=== PATIENT | female | born 1970 | race Caucasian/White ===

== ENCOUNTER → 2018-06-12 07:48 | Outpatient (CLI) | payer OTHER, SELFPAY | PROVIDERS: Family Provider Family Medicine; PCP Family Medicine; Visit Provider Obstetrics & Gynecology | DX: N93.9 Abnormal uterine and vaginal bleeding, unspecified (principal) | CPT/HCPCS: 76830; 76856 ==

== ENCOUNTER → 2018-06-15 08:07 | Outpatient (CLI) | payer OTHER, SELFPAY ==
--- NOTE | 2018-06-15 12:30 | EMB_PTH ---
PATIENT: J CARLOS PADGETT LOC: [facility] U#:[id number] AGE/SX: 55/F ROOM: RE06/15/[address]: Dr. Janette Hendrix MD : 1970 BED: DIS: SPEC #: [id number] RECD: 06/15/18 14:35 STATUS: CIRO ZION #: [id number] PARTHA: 06/15/18 12:[address]: Janette Hendrix DEPT: SURGICAL PATHOLOGY RECD BY: Tonio Villeda ENTERED: 06/16/18 09:26 SP TYPE: ENDOLisandro BX/C DAISY DR: Rosa Schneider PA-C Tissues: Endometrium, NOS Procedures: Surgery Specimen Level IV HEADER OPERATION: Endometrial biopsy PRE-OP DIAGNOSIS: Abnormal uterine bleeding TISSUE SUBMITTED: Endometrial lining MICROSCOPIC DIAGNOSIS Endometrial biopsy: Scant fragments of endometrial tissue with mildly disordered proliferative endometrium. Desquamated fragments of benign ectocervical epithelium. SJ:samantha 06/16/18 MICROSCOPIC DESCRIPTION Slides are reviewed. GROSS DESCRIPTION Received is one container labeled with the patient's name and not further designated. The specimen consists of multiple fragments of hemorrhagic mucoid tissue that in aggregate measure 2 x 2 x 0.2 cm. The specimen is totally submitted in one cassette. / SJ:rg 06/15/18 TC:5 CPT: 87581
== END ==
PROVIDERS: Family Provider Family Medicine; PCP Family Medicine; Visit Provider Obstetrics & Gynecology
DX: N93.9 Abnormal uterine and vaginal bleeding, unspecified (principal)
CPT/HCPCS: 88305

== ENCOUNTER 2018-08-06 10:36 | Day surgery (SDC) | payer OTHER, SELFPAY ==
--- NOTE | 2018-08-05 01:50 | HP.PCM_ITS ---
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 Required: No Is patient in pain?: Yes Pain scale (1-10): 4 Allergies acetaminophen [From Tylenol] Allergy (Mild, Verified 06/03/18 10:11) vomiting latex Allergy (Mild, Verified 06/03/18 10:11) rash, itch Penicillins Allergy (Verified 06/03/18 10:11) Rash Sulfa (Sulfonamide Antibiotics) Allergy (Verified 06/03/18 10:11) Rash codeine Adverse Reaction (Verified 06/03/18 10:11) Nausea Medications gabapentin 300 mg capsule 600 mg PO BID cap 06/03/18 [History Confirmed 06/03/18] metoprolol succinate ER 50 mg tablet,extended release 24 hr 50 mg PO DAILY 06/03/18 [History Confirmed 06/03/18] nabumetone 750 mg tablet 1,500 mg PO ONCE tab 06/03/18 [History Confirmed 06/03/18] venlafaxine ER 75 mg capsule,extended release 24 hr 75 mg PO DAILY 06/03/18 [History Confirmed 06/03/18] Is last menstrual period known: Yes Last Menstral Period: 05/31/18 Post menopausal: No Patient : No : No PFSH Medical History Anterolisthesis (Chronic) Degenerative disc disease, lumbar (Chronic) bilateral L5 pars defects (Chronic) PVCs (premature ventricular contractions) (Chronic) Fibromyalgia (Chronic) Abnormal Pap smear of cervix (Acute) Surgical History Encounter for Essure implantation (Resolved) History of cholecystectomy (Resolved) History of tonsillectomy (Resolved) S/P left knee surgery (Resolved) uterine ablation (Resolved) Family History Mother Hypertension Grandmother Diabetes Uncle Thyroid cancer Other Parkinsons disease Social History Smoking Status: Former smoker alcohol intake: current alcohol intake frequency: holidays/special occasions only substance use type: does not use caffeine: Yes what type of physical activity do you participate in: none seatbelt use: always do you feel safe at home: Yes additional social history: 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 she had esssure done at the time. she has also developed pelvic pain since, and both the bleeding and pain have gotten worse. son is in college at [employer] Female Reproductive History Last Menstral Period: 05/31/18 Cycle Length: 21-35 Pregancy History 2 Elective abortions Hx Para 1 Spontaneous abortions Hx # Term Pregnancies Ectopic pregnancies Hx # Pregnancies Multiple births # of living children Past Pregnancies Del. Date Name GA/Weeks Outcome Route Bth Weight Infant Gen Labor Lgth Anesthesia Del Locatn Provider FOB Unknown -1997 ROS Const Constitutional: Reports headache(s) and fatigue; denies poor appetite, fever(s), increased appetite, weight gain or weight loss ENT ENT: Denies dizziness or dry mouth Cardio Card: Denies chest pain Resp Resp: Denies dyspnea or cough GI GI: Reports as per HPI and abdominal pain; denies vomiting, nausea or constipation : Reports as per HPI and urinary incontinence (stress); denies urinary urgency, vaginal discharge, urinary frequency, vaginal itching, vaginal odor, vaginal dryness, urinary hesitancy, pelvic pain, difficulty urinating or painful urination Musc Musc: Reports joint pain and back pain; denies muscle weakness Skin Skin/Breast: Denies hair loss, change in hair, dry skin, breast pain, breast skin changes or breast lump Neuro Neuro: Denies dizziness Psych Psych: Denies anxiety or depression Endo Endo: Denies cold intolerance, increased thirst, excessive sweating or heat intolerance Pato/Lymph Hematologic/Lymphatic: Denies easy bleeding, Denies easy bruising, Denies enlarged lymph nodes Exam Const General: cooperative, healthy appearing, comfortable, no acute distress, well developed Nutritional Appearance: average body habitus Orientation: alert [facility] Head: normal to inspection, normocephalic Ears: hearing grossly normal bilaterally, external ears normal Nose: external nose normal, nares normal Face and sinus: normal facial exam Neck Neck: normal visual inspection, trachea midline, no lymphadenopathy Thyroid: thyroid normal Chest Chest palpation & inspection: normal inspection of the chest Resp Effort & Inspection: normal respiratory effort Cardio Rate: regular rate GI Inspection: normal to inspection, non-distended Palpation: soft, no hepatosplenomegaly Musc Cervical Spine: other Other: gross motor intact no deficits, full bilateral strength Skin General: no rashes or lesions noted Neuro General: alert, awake, no focal motor deficits, moves all extremities Motor: muscle tone normal throughout Extrem General: normal to inspection, no pedal edema Psych Appearance: grossly normal Mental Status: mental status grossly normal Affect: normal affect Speech and Movement: speech and movement normal Assessment & Plan Problems 1. Abnormal uterine bleeding N93.9 recommend us emb cbc tsh then plan TVH BS, may want urogyn consult for possible sling 2. Chronic female pelvic pain R10.2; G89.29 Plan recommend workup fu for emb after us and plan for hysterectomy. UPDATE- I have seen the patient and performed any clinically relevant updates to the history and physical exam. Janette Hendrix MD
[2018-08-06] VITALS (10 sets, daily range): BP systolic 90–146; BP diastolic 48–71; PULSE 51–85; RESP 15–18; TEMP 36.1–36.8; O2SAT 92–100; BMI 35.2
--- NOTE | 2018-08-06 11:01 | EKG12_ITS ---
Test Reason : PRE OP Blood Pressure : / mmHG Vent. Rate : 079 BPM Atrial Rate : 079 BPM P-R Int : 158 ms QRS Dur : 078 ms QT Int : 378 ms P-R-T Axes : 050 026 045 degrees QTc Int : 433 ms Normal sinus rhythm Normal ECG No previous ECGs available Confirmed by MARYA GREEN, LILLY ([id number]), senior editor KARLA NAVA ([id number]) on 08/12/2018 2:52:48 PM Referred By: Janette Hendrix Confirmed By:LILLY MALHOTRA MD
[2018-08-06 11:21] LABS: Absolute Lymphocyte Count 3.13 X10^3/ul (0.83-4.51); Absolute Neutrophil Count 5.5 X10^3/uL (2.0-7.7); Basophil# 0.01 X10^3/uL; Basophil% 0.1 % (0-1); Eosinophil# 0.17 X10^3/uL; Eosinophils% 1.7 % (0-5); Hematocrit 40.1 % (37-47); Hemoglobin 13.4 g/dl (12.0-15.0); Lymphocyte # 3.13 X10^3/ul (4.0); Mean Corp Hgb Conc 33.4 g/gl (32-36); Mean Corpuscular Hgb 31.2 pg (27.0-32.0); Mean Corpuscular Volume 93.5 fL (81-99); Mean Platelet Vol. 11.3 fl (6.2-12.0); Monocyte# 0.89 X10^3/uL; Monocyte% 9.1 % (0-10); Neutrophil # 5.54 X10^3/uL (2.7-7.7); Neutrophil % 56.8 % (47-70); Platelet Count 246 K/mm3 (150-450); RBC Distribution Width CV 13.1 % (11.6-14.6); RBC Distribution Width SD 43.7 fl (35.1-43.9); Red Blood Count 4.29 M/mm3 (4.2-5.4); White Blood Count 9.8 K/mm3 (4.4-11.0)
[2018-08-06 11:24] LABS: POSITIVE COUNT NO; POSITIVE DIFFERENTIAL NO; POSITIVE MORPHOLOGY NO
[2018-08-06 12:15] LABS: Internal QC Validated? YES +Cl - CLEAR BKGD
[2018-08-06 12:16] LABS: Pregnancy, Urine Negative Negative
--- NOTE | 2018-08-06 13:00 | HYST_PTH ---
PATIENT: J CARLOS PADGETT LOC: [facility] U#:[id number] AGE/SX: 48/F ROOM: RE08/06/[address]: Dr. Janette Hendrix MD : 1970 BED: DIS: 08/07/2018 SPEC #: [id number] RECD: 08/07/18 10:23 STATUS: CIRO GAONAJory #: [id number] PARTHA: 08/06/18 13:[address]: Janette Hendrix DEPT: SURGICAL PATHOLOGY RECD BY: Lui Rico ENTERED: 08/07/18 11:58 SP TYPE: HYSTERECT OTHR DR: Dr. Timi Cervantes MD Tissues: Uterus, NOS Procedures: Surgery Specimen Level V HEADER OPERATION: Hysterectomy, vaginal salpingectomy PRE-OP DIAGNOSIS: Abnormal uterine bleeding, chronic pelvic pain TISSUE SUBMITTED: Uterus, cervix and bilateral fallopian tubes MICROSCOPIC DIAGNOSIS Uterus, cervix and bilateral fallopian tubes, vaginal hysterectomy and bilateral salpingectomy: Cervix - mild chronic cystic cervicitis. Endometrium - proliferative endometrium. Myometrium - no pathologic diagnosis. Bilateral fallopian tubes - no pathologic diagnosis. SJ:samantha 08/10/18 COMMENT Please make reference to previous specimen ([id number]) endometrial biopsy with diagnosis of scant fragment of endometrial tissue with mildly disordered proliferative endometrium. MICROSCOPIC DESCRIPTION Slides are reviewed. GROSS DESCRIPTION Received in fixative is one container labeled with the patient's name and designated uterus. The specimen consists of a uterus with attached cervix measuring 8.9 x 4.5 x 4.5 cm and weighing 83 gm. Present free in the container are two fallopian tubes. One fallopian tube measures 3 cm in length and has a diameter of 0.6 cm. The other fallopian tube measures 4 cm in length and has a maximal diameter of 0.5 cm. Both fallopian tubes have normal fimbriated ends. Small portions of fallopian tube that are adherent to the uterus contain Essure devices that are intact without migration, breaks or tears. One fallopian tube is inked in black ink. The ectocervix is oval in contour. No mass lesions are identified. The endocervical canal measures 3.5 cm in length and is grossly unremarkable. The triangular endometrial cavity measures 2.5 x 2 cm. The light alva endometrium measures <0.1 cm. Incubator Machine Operator sections are submitted in eight cassettes as follows: 1 - anterior cervix, 2 - posterior cervix, 3 & 4 - anterior uterine wall, 5 & 6 - posterior uterine wall, 7 - one fallopian tube, totally submitted, 8 - the other fallopian tube, totally submitted. / AM:samantha 08/07/18 TC:5 CPT: 01238
[2018-08-06] MEDS: Vasopressin 20 UNITS/ML Vial (15:42)
--- NOTE | 2018-08-06 16:13 | PCM.OPRPT ---
Problem List (1) Abnormal uterine bleeding Status: Acute Comment: recommend us emb cbc tsh then plan TVH BS, (2) Chronic female pelvic pain Status: Chronic Report of Operation Date of Procedure: 08/06/18 Pre-Operative Diagnosis: aub Post-Operative Diagnosis: same Surgery/Procedure Performed:: tvh bs Description of Surgical Findings:: Normal uterus tubes and ovaries power plant electrician: Inés Goodman Type of Anesthesia:: General Special Medications: Clinda gent Flagyl Specimen's removed: Uterus tubes Drains: Boucher Estimated Blood Loss (mL): 50 cc Fluids Replaced: Crystalloid Description of Procedure: Patient was taken to the operating room and was placed under general anesthesia was prepped and draped in normal sterile fashion in the dorsal lithotomy position. Preoperative antibiotics and SCDs and Boucher catheter was placed inside the bladder. Weighted speculum was placed in the vagina and the anterior and posterior lip of the cervix was grasped with 2 Anay clamps and circumferentially injected with dilute vasopressin. A circumferential incision was made with a scalpel and the posterior cul-de-sac was entered into sharply and a longneck speculum was placed. The anterior cul-de-sac was also dissected down and entered into sharply and the uterosacral ligaments were clamped cut and suture ligated bilaterally followed by the cardinal ligaments which were Clamped cut and suture ligated bilaterally with 0 Monocryl. The uterus serially descended and progressive bites were taken bilaterally up to the level of the utero-ovarian ligament bilaterally which was clamped transected and double ligated with 0 Monocryl suture and 0 Vicryl free tie. Bilateral fallopian tubes and ovaries were well visualized and noted be within normal limits and the bilateral fallopian tubes were transected across the base with a Shanae clamp and removed and sutured with 0 Vicryl suture. Excellent hemostasis was noted. Posterior peritoneum was reapproximated with 2-0 Vicryl and a modified Perez stitch was placed through the posterior vaginal cuff and bilateral uterosacral ligaments across the posterior cul-de-sac skimming along to provide apical support to the vagina. The vagina was closed with [id number] 0 Vicryl pop offs including the posterior and anterior peritoneum in the reapproximation. Excellent hemostasis was noted. All instruments removed from the vagina clear urine was noted at the end of the procedure and patient was awoken and taken recovery in stable condition. Grafts/Implants Used: None - Complications None - Admit VTE Documentation VTE Present on Admission: No
--- NOTE | 2018-08-06 16:18 | DCINST_ITS ---
Discharge Diet: No Restrictions Discharge Activity: Return to Normal Activity, May Not Drive, May Shower May resume sexual activity in: 6-8 weeks Call your doctor if your incision/area has: Continuous Slow Oozing, Sudden Increased Bleeding, Increased Pain/ Swelling, Increased Redness, Foul Smelling Discharge Call your doctor if you observe: Fever of 101 or Higher, Inability to urinate, Inability to have a bowel movement, Using more than one pad per hour Allergies/Adverse Reactions: Allergies acetaminophen [From Tylenol] Allergy (Mild, Verified 07/30/18 15:11) vomiting latex Allergy (Mild, Verified 07/30/18 15:11) rash, itch Penicillins Allergy (Verified 07/30/18 15:11) Rash Sulfa (Sulfonamide Antibiotics) Allergy (Verified 07/30/18 15:11) Rash codeine Adverse Reaction (Verified 07/30/18 15:11) Nausea ONIONS Adverse Reaction (Uncoded 07/30/18 15:41) Food Allergy Medications to take at Discharge gabapentin 300 mg capsule 600 mg PO BID cap 06/03/18 metoprolol succinate ER 50 mg tablet,extended release 24 hr 50 mg PO QHS 06/03/18 Cranberry Conc/Ascorbic Acid [Cranberry Plus Vitamin C Sftgl] 2 each PO QHS 07/30/18 Naproxen [Naprosyn] 250 - 500 mg PO Q8H PRN PRN #30 tablet 08/06/18 Oxycodone HCl/Acetaminophen [Percocet 5-325] 1 - 2 tablet PO Q4H PRN PRN 7 Days #28 tablet 08/06/18 The following prescriptions were given: Oxycodone HCl/Acetaminophen [Percocet 5-325] 1 - 2 tablet PO Q4H PRN PRN 7 Days #28 tablet PRN Reason: Moderate-Severe pain Naproxen [Naprosyn] 250 - 500 mg PO Q8H PRN PRN #30 tablet PRN Reason: MILD PAIN Primary Care Physician: Timi Cervantes [Primary Care Provider] - Test Results: Test results from this visit will be discussed in further detail at your follow- up appointment, if applicable. Please Follow Up With: Janette Hendrix MD - [phone]
[2018-08-06] MEDS: Ketorolac 30 MG/ML Syringe IV ×2 (16:47→22:01)
[2018-08-06] MEDS: Lactated Ringers 1,000 ML 125 ML IV (18:03)
[2018-08-06] MEDS: Lactated Ringers 500 ML 999 ML IV (18:25)
[2018-08-07 02:42] VITALS: BP 110/41; PULSE 79; RESP 16; TEMP 37.2; O2SAT 96
[2018-08-07] MEDS: oxyCODONE 5 MG Tablet PO (02:46)
[2018-08-07] MEDS: Ketorolac 30 MG/ML Syringe IV (04:49)
[2018-08-07] MEDS: Enoxaparin 40 MG/0.4 ML Syringe SC (04:49)
[2018-08-07] MEDS: 0.9% NaCl Peripheral Flush Adult/Peds IV (06:36)
[2018-08-07 06:47] VITALS: O2SAT 95
[2018-08-07 07:17] LABS: Hematocrit 33.3 % (37-47); Mean Corpuscular Hgb 30.9 pg (27.0-32.0); Mean Corpuscular Volume 93.5 fL (81-99); Mean Platelet Vol. 11.1 fl (6.2-12.0); Platelet Count 193 K/mm3 (150-450); RBC Distribution Width CV 13.2 % (11.6-14.6); RBC Distribution Width SD 45.3 fl (35.1-43.9); Red Blood Count 3.56 M/mm3 (4.2-5.4); Scan Indicated on CBC? Y/N NO; White Blood Count 9.6 K/mm3 (4.4-11.0)
[2018-08-07] MEDS: Ketorolac 10 MG Tablet PO (09:40)
[2018-08-07 09:58] VITALS: BP 92/68; PULSE 79; RESP 18; TEMP 36.9; O2SAT 100
--- NOTE | 2018-08-07 10:57 | NURSING ---
Addendum entered by Desire Carmona 08/07/18 12:35: Nurse from Dr. Hendrix's returned call to this RN and state that they will order pain meds. After phone call completed, pt out to nurses' station expressing frustration for still being here. States she just wants to go home and sleep. This RN notified pt that retail pharmacy would be called to notify of need for prescription for naproxen and that dr. hendrix's office would be called and asked to send prescription for oxycodone WITHOUT tylenol to [facility] in [place] per pt request. Nurse from Dr. Hendrix's office called this RN and stated that the will be able to do that. patient notified of same and was able to be discharged from hospital within 25 minutes of pt visit to nurses' station. Original Note: Dr. Hendrix's office called at this time- x2- each time transferred to voicemail on nurses' line. This RN left 1 message regarding pt allergy to tylenol and that percocet was ordered for pain med at time of d/c. pt concerned and awaiting new order. GUSTAVO Villafana had called office about 1 hour ago, per her report. pt requesting to be d/c'ed [facility]. Awaiting return call from office.
== END 2018-08-07 12:41 | disposition home or self-care (01) ==
LOC: SDC 10:37 → AC 10:38 → MS3 12:17
PROVIDERS: Family Provider Family Medicine; PCP Family Medicine; Visit Provider Obstetrics & Gynecology
PROC: (CPT 58260; principal; 2018-08-06 12:40)
DX: N93.9 Abnormal uterine and vaginal bleeding, unspecified (principal); N72 Inflammatory disease of cervix uteri; R10.2 Pelvic and perineal pain; G89.29 Other chronic pain; M79.7 Fibromyalgia; F41.9 Anxiety disorder, unspecified; Z87.891 Personal history of nicotine dependence
CPT/HCPCS: 58262; 36415; 81025; 85025; 85027; 86850; 86900; 88307; 93005; 99406; J7120; A4216; J2405

== ENCOUNTER 2022-07-15 17:30 | Outpatient (RCR) | payer OTHER, SELFPAY ==
--- NOTE | 2022-06-17 18:58 | HP.PTEVAL_ITS ---
Patient's Visit Information J CARLOS PADGETT is a 52 year old F referred to Physical Therapy by Dr. Roman Reid MD with a diagnosis of IMPINGEMENT SYNDROME OF RIGHT SHOULDER. Date of Evaluation: 06/17/22 Physical Therapist: Kareem Malcolm PT, Cert MDT, OCS - Visit Plan Frequency: 2x /Week Duration: 6 Weeks Plan: PRECAUTION: LATEX ALERGEGY. PT INTERVETIONS POSTURAL EX'S ,RTC /SCAPULAR STRENGTHENING AND MODALTIES - Subjective This 52 y/o female presents to physical therapy with right shoulder pain. Patient has shoulder pain since December 2021 with symptoms lateral deltoid to elbow. Symptoms progressively with decrease ability to raise arm OH. Patient did conservative treatment . Seen DR Reid tried injection and had x-rays with injections did help. Patient DR provided options but needed to do PT to have MRI to ensure there is no RTC tear. Patient location pain global grossly with occasional paresthesia hands many years. Pain described as ache dull. Aggravating lifting raising arm OH ,affects ADLs and housework tasks . Alleviating factors movement ibuprofen. Patient pain does affects sleeping. No h/o trauma but rolled tractor cause clavicle fracture. Patient goals to have to more pain and prior level function. *LATEX ALLERGY*. 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 SOCIAL: - Pain Right Shoulder Pain Intensity (Out of 10): 2 Pain Intensity Range: 10 - Objective POSTURE: mild forward posture rounded shoulders. PALPTION: tender posterior shoulder. NEURO: denies paresthesia/tingling ,occasional in hands. AROM: shoulder flexion 150 pain ER ,abduction in scapular 150 degrees pain ER ,ER 90 degrees ,IR L3. MMT( peak force) : infraspinatus 19.7 ,subscapularis 24.6, supraspinatus 18.8 ,deltoid 18.8. CERVICAL ROM: WFL No effect - Special Tests C/S Radiculapathy - Left Upper limb tension test: Negative C/S Radiculapathy - Right Upper limb tension test: Negative C/S Radiculapathy - Left Spurlings: Negative C/S Radiculapathy - Right Spurlings: Negative C/S Radiculapathy - Left Cervical distraction: Negative C/S Radiculapathy - Right Cervical distraction: Negative R Shoulder External Rotation Lag Test - RC Tear: Negative R Shoulder Supine Impingement Test - RC Tear: Negative R Shoulder Lift Off Test - Subscapular Tear: Negative R Shoulder Drop Sign - IS Test: Negative R Shoulder Empty Can - SS: Negative R Shoulder Belly Press - SupScap: Negative R Shoulder Neer - Impingement: Positive R Shoulder Escobar Aidan - Impingement: Positive - Balance/Special Test Scores Quick DASH Score: 45.0000 - Goals Goal 1:: I with HEP of shoulder Goal Time Frame: 4-6 Weeks Goal 2:: Patient to demonstrate 60% improvement with decrease pain and improve function right shoulder Goal Time Frame: 4-6 Weeks Goal 3:: Patient to improve peak force of RTC by 5-10 to improve function of right shoulder for ADL's and job demnads Goal Time Frame: 6-8 Weeks Goal 4:: Patient to improve quick dash by 5 points to improve function and job demands Goal Time Frame: 4-6 Weeks Goal 5:: Patient be able to raise arm for functional activities above 90 degrees and job demands with min limitations Goal Time Frame: 4-6 Weeks - Rehabilitation Potential Physical Therapy Diagnosis: This patient has right shoulder possible tendinopathy with impingement signs of RTC and sight weakness but improving since injection Rehabilitation Potential: Good - Anticipated Interventions Patient/Client Instruction: Educate patient on: Condition, Plan of Care For the Purpose of:: To decrease pain, To increase ROM, To improve muscle performance and motor function, To improve ability to perform ADL's, To increase tolerance to activity/condition/position, To improve performance and independence with ADL's, To improve ability of physical actions for home/community/work/leisure, To improve health of tissue, To decrease soft tissue restriction, To increase flexibility/ROM Therapeutic Exercise to Include: Strength training, Postural training, Flexibilty training, Active ROM For the Purpose of:: To decrease pain, To increase ROM, To improve muscle performance and motor function, To improve ability to perform ADL's, To increase tolerance to activity/condition/position, To improve ability of physical actions for home/community/work/leisure, To decrease soft tissue restriction, To incre ase flexibility/ROM, To improve tolerance to ADL's TENS: Yes IF ES: Yes Cryotherapy (ice pack, ice massage): Yes Thermo therapy (hot pack): Yes Ultrasound (thermal/non thermal): Yes For the Purpose of:: To decrease pain, To increase ROM, To improve nutrient delivery to tissue, To increase oxygenation perfusion, To improve health of tissue, To decrease soft tissue restriction Thank you for the opportunity to evaluate your patient. For Medicare and Medicare HMO plans, please review the plan of care and approve it. It will need to be FAXED BACK to us at [phone] for Medicare purposes. For Medicare only, by signing this I certify the plan of care. Please let me know if there are questions or concerns regarding this plan of care. Physician Signature: Date:____
--- NOTE | 2022-09-24 12:08 | HP.PTDCSUM ---
It has been my pleasure to treat J CARLOS PADGETT referred by Dr. Roman Reid MD, with the diagnosis of IMPINGEMENT SYNDROME OF RIGHT SHOULDER for a total of 9 visit(s). Discharge Date: Please see the following information for a summary of their discharge status. Subjective: Doing okay but plan to see DR maybe MRI Right Shoulder Pain Intensity (Out of 10): 3 % Improvement: 50 Objective/Function: POSTURE: WFL. AROM: shoulder flexion/abd 150 degrees ,. MMT:RTC 4/5 ,DELTOID 4/5 PAIN Goal 1:: I with HEP of shoulder Goal 2:: Patient to demonstrate 60% improvement with decrease pain and improve function right shoulder Goal 3:: Patient to improve peak force of RTC by 5-10 to improve function of right shoulder for ADL's and job demnads Goal 4:: Patient to improve quick dash by 5 points to improve function and job demands Goal 5:: Patient be able to raise arm for functional activities above 90 degrees and job demands with min limitations Plan: RTD If there are questions or concerns regarding this patient's physical therapy, please feel free to call me at [phone]. Thank you for the referral of this patient. Sincerely, Kareem Malcolm, PT, Cert MDT, OCS Balance/Gait/Functional tests - Balance/Special Test Scores Quick DASH Score: 45.0000
== END 2022-07-15 19:00 | disposition home or self-care (01) ==
LOC: PT 17:30
PROVIDERS: PCP Family Medicine; Referring Provider Orthopaedic Surgery Sports Medicine; Visit Provider Orthopaedic Surgery Sports Medicine
DX: M75.41 Impingement syndrome of right shoulder (principal)
CPT/HCPCS: 97035; 97110; 97140; 97162; 97530